=== PATIENT | female | born 1955 | race Caucasian/White ===

== ENCOUNTER 2019-02-15 07:00 | Day surgery (SDC) | payer MEDICARE ==
[~2019-02-15 07:00] MED LIST: ADAL40PEN INJ; ALBU4; ALBU90I INH; BUDE6HFA; Black Cohosh40 MG; CHOL10002 PO; CLOB.05TO TP; CODGUAEL; DIAZ2; ETOD200; FLUSAL5005 IH; FOLI1 PO; HYDACE10B PO; HYDCHL12.5; IBUP800 PO; METTREX2.5 PO; OMEP10ER; OMEP10ER PO; OSEL75CA; PRED1; TRAM50; TRAM50 PO
== END 2019-02-15 22:46 | disposition home or self-care (01) ==
LOC: MOI US 07:00 → MOI MAM 07:30 → MOI US 07:30
DX: C50.911 Malignant neoplasm of unspecified site of right female breast (principal); Z17.1 Estrogen receptor negative status [ER-]
CPT/HCPCS: 19083; 38505; 76942; 77065; 88305; 88360; A4648; G0279

== ENCOUNTER 2019-03-04 10:40 | Day surgery (SDC) | payer MEDICARE ==
[~2019-03-04] VITALS: Ht 154.9 cm; Wt 81.0 kg
--- NOTE | 2019-03-04 12:16 | NUR ---
03/04/19 1216 Pallavi Lee HEPARIN USED TO PRIME PORT.
--- NOTE | 2019-03-04 13:07 | NUR ---
03/04/19 1307 Shelley Ash PT IS ACCOMPANIED BY HER AT THIS TIME. PT IS IN THE BED AWAITING RESULTS FROM CHEST X-RAY. VSS. PT DENIES PAIN AND NAUSEA.
== END 2019-03-04 13:32 | disposition home or self-care (01) ==
LOC: ORSCSDS 10:40
PROVIDERS: Surgery
PROC: 05HN33Z Insertion of Infusion Device into Left Internal Jugular Vein, Percutaneous Approach (ICD-10-PCS; principal; 2019-03-04 12:00)
PROC: B5141ZA Fluoroscopy of Left Jugular Veins using Low Osmolar Contrast, Guidance (ICD-10-PCS; principal; 2019-03-04 12:00)
DX: C50.411 Malignant neoplasm of upper-outer quadrant of right female breast (principal); I10 Essential (primary) hypertension; J44.9 Chronic obstructive pulmonary disease, unspecified; G47.33 Obstructive sleep apnea (adult) (pediatric)
CPT/HCPCS: 77001; C1788; J0690; J1100; J1642; J2250; J2370; J2405; J2704; J7120

== ENCOUNTER 2019-03-12 10:01 | Day surgery (SDC) | payer MEDICARE | END 2019-03-12 23:42 | disposition home or self-care (01) | LOC: ORSCMMR 10:01 → RAD 10:01 → ORSCMMR 10:02 → RAD 11:00 | DX: Z45.2 Encounter for adjustment and management of vascular access device (principal); C50.411 Malignant neoplasm of upper-outer quadrant of right female breast | CPT/HCPCS: 36598; Q9967 ==

== ENCOUNTER 2019-03-22 07:02 | Day surgery (SDC) | payer MEDICARE | END 2019-03-23 00:06 | disposition home or self-care (01) | LOC: MOI US 07:02 | PROC: BH40ZZZ Ultrasonography of Right Breast (ICD-10-PCS; principal; 2019-03-23) | DX: C50.411 Malignant neoplasm of upper-outer quadrant of right female breast (principal) | CPT/HCPCS: 19285; 19286; 77065 ==

== ENCOUNTER 2019-09-09 05:45 | Day surgery (SDC) | payer MEDICARE ==
[~2019-09-09] VITALS: Ht 154.9 cm; Wt 87.6 kg
[~2019-09-09 05:45] MED LIST changes: +DIAZ5 PO; +LORA.5 PO
--- NOTE | 2019-09-09 07:04 | NUR ---
Ambulatory in Day Surgery. History, Chart, Medications and Allergies reviewed before start of procedure.Lungs clear T/O to Auscultation. Patient States Post-Procedure ride home has been arranged. Patient confirms NPO status and agrees with scheduled surgery.PT LYING COMFORTABLY IN GURNEY WITH WARMER ON AND AT BEDSIDE. VSS. WILL CONTINUE TO MONITOR.
--- NOTE | 2019-09-09 07:19 | NUR ---
CIRCULATING NURSE DOMINIC DAVIS RN AT [facility].
--- NOTE | 2019-09-09 11:46 | NUR ---
"DAY SURGERY RN | DISCHARGE VSS. A/O. DENIES ISSUES. STATES THEY WANT TO GO HOME. DISCHARGE INSTRUCTIONS GIVENT TO PATIENT. DEMONSTRATED SILVANA DRAIN CARE. SPECIMEN CUP GIVEN TO PATIENT. NO ISSUES. TAKEN IN WHEELCHAIR TO FRONT ENTRANCE BY THIS RN. IS RIDE HOME."
== END 2019-09-09 22:57 | disposition home or self-care (01) ==
LOC: ORSCMMR 05:45 → ORD 07:30 → ORSCMMR 07:30
PROVIDERS: Surgery
PROC: 07B50ZX Excision of Right Axillary Lymphatic, Open Approach, Diagnostic (ICD-10-PCS; principal; 2019-09-09 07:30)
PROC: 0HBT0ZZ Excision of Right Breast, Open Approach (ICD-10-PCS; principal; 2019-09-09 07:30)
DX: C50.411 Malignant neoplasm of upper-outer quadrant of right female breast (principal); C77.3 Secondary and unspecified malignant neoplasm of axilla and upper limb lymph nodes; Z87.891 Personal history of nicotine dependence; E66.01 Morbid (severe) obesity due to excess calories; Z68.36 Body mass index [BMI] 36.0-36.9, adult
CPT/HCPCS: 76098; 88305; 88307; 88331; 88332; A9270-GY; J0690; J1100; J1885; J2250; J2405; J2704; J3010; J7120

== ENCOUNTER → 2019-09-29 | Outpatient (CLI) | payer MEDICARE ==
[~2019-09-29] MED LIST changes: +CLIN300 PO; +OMEPRAZOLE20 MG PO
[2019-09-29 14:06] LABS: BASOPHILS ABSOLUTE AUTO 0.03 K/mm3 (0.00-0.23); BASOPHILS PERCENT AUTO 0 % (0-2); EOSINOPHILS ABSOLUTE AUTO 0.45 K/mm3 (0.00-0.68); EOSINOPHILS PERCENT AUTO 6 % (0-6); Hemoglobin 12.7 g/dL (11.5-16.0); IMMATURE GRAN ABSOLUTE AUTO 0.03 K/mm3 (0.00-0.10); IMMATURE GRAN PERCENT AUTO 0 % (0-1); LYMPHOCYTES ABSOLUTE AUTO 1.24 K/mm3 (0.84-5.20); LYMPHOCYTES PERCENT AUTO 17 % (21-46); MONOCYTES ABSOLUTE AUTO 0.91 K/mm3 (0.16-1.47); MONOCYTES PERCENT AUTO 12 % (4-13); Mean Corpuscular HGB 31.3 pg (26.0-34.0); Mean Corpuscular HGB Conc 33.4 g/dL (31.5-36.5); Mean Corpuscular Volume 94 fL (80-100); NEUTROPHILS ABSOLUTE AUTO 4.79 K/mm3 (1.96-9.15); NEUTROPHILS PERCENT AUTO 64 % (41-73); Platelet Count 263 K/mm3 (150-400); RDW Standard Deviation 44.8 fL (35.1-46.3); Red Blood Cell Count 4.06 M/mm3 (3.80-5.20); White Blood Cell Count 7.45 K/mm3 (4.00-11.30)
[2019-09-29 14:17] LABS: Alanine Aminotransfer (ALT/SGP 21 U/L (12-78); Albumin, Blood 3.2 g/dL (3.4-5.0); Albumin/Globulin Ratio 0.9 (0.8-1.8); Alk Phos 85 U/L (40-126); Anion Gap 12 mmol/L (6-16); Aspartate Aminotrans (AST/SGOT 19 U/L (12-37); Bilirubin, Total 0.6 mg/dL (0.1-1.0); Blood Urea Nitrogen 13 mg/dL (8-24); Bun/Creatinine Ratio 17.8 (12.0-20.0); CO2, Blood 25 mmol/L (21-32); Chloride, Blood 104 mmol/L (98-108); Creatinine, Blood 0.73 mg/dL (0.40-1.00); Globulin, Blood 3.6 g/dL (2.2-4.0); Glomerular Filtration Rate >60 (60-); Glucose, Blood 95 mg/dL (70-99); Potassium, Blood 3.9 mmol/L (3.5-5.5); Sodium, Blood 141 mmol/L (136-145); Total Protein, Blood 6.8 g/dL (6.4-8.2)
== END | disposition home or self-care (01) ==
LOC: LAB SHORT 13:51 → LAB EV 13:51
PROVIDERS: Physician Assistant
DX: L08.9 Local infection of the skin and subcutaneous tissue, unspecified (principal)
CPT/HCPCS: 80053; 85025; 87040; 87070; 87205

== ENCOUNTER 2019-10-02 12:48 | Day surgery (SDC) | payer MEDICARE ==
[~2019-10-02] VITALS: Ht 154.9 cm; Wt 84.0 kg
[~2019-10-02 12:48] MED LIST changes: -CLIN300 PO; -OMEPRAZOLE20 MG PO
[2019-10-02] MEDS ORDERED: OMEPRAZOLE20 MG PO (13:42)
[2019-10-02] MEDS ORDERED: CLIN300 PO (13:42)
--- NOTE | 2019-10-02 14:03 | NUR ---
Ambulatory in Day Surgery. Surgical site prepped with 2% Chlorhexidine cloth wipe. History, Chart, Medications and Allergies reviewed before start of procedure. Lungs clear T/O to Auscultation. Patient confirms NPO status and agrees with scheduled surgery. Pre-Op teaching done. Pt verbalizes understanding. Patient States Post-Procedure ride home has been arranged.
--- NOTE | 2019-10-02 16:08 | NUR ---
"DAY SURGERY RN | PATIENT FROM DAY SURG TO PACU FOR PRE-OP PRE-OP STAFF WENT HOME SO THIS RN AND BLAS GRANT RN TOOK CARE OF PATIENT IN PACU. BOTH DOCTORS AND TOY STUFFER HAVE SEEN PATIENT. TO OR."
--- NOTE | 2019-10-02 17:23 | NUR ---
"DAY SURGERY RN | DEACCESS OF MEDIPORT ORDERS OBTAINED FOR DEACCESS. FLUSHED WITH 20 ML NORMAL SALINE, THEN 500 UNIT HEPARIN LOCK DIRECTED BY PHYSICIAN. NEEDLE WAS DEACCESSED, NO BLEEDING. BANDAIDE IN PLACE."
--- NOTE | 2019-10-02 17:25 | NUR ---
"DAY SURGERY RN | DISCHARGE VSS. A/O. SITE C/D/I. NO PAIN AND NO NAUSEA. TOLERATING PO CRACKERS AND WATER. STATES READY TO GO. NO ISSUES. DISCHARGE INSTRUCTIONS GIVEN TO PATIENT WITH FAMILY PRESENT. TAKEN OUT IN WHEELCHAIR BY THIS RN. IS RIDE HOME."
--- NOTE | 2019-10-03 09:06 | NUR ---
10/03/19 0906 Regina Javier VERIFICATIONS: EDIT CHART.
== END 2019-10-02 22:35 | disposition home or self-care (01) ==
LOC: ORSCMMR 12:48
PROVIDERS: Surgery
PROC: 0H9T0ZZ Drainage of Right Breast, Open Approach (ICD-10-PCS; principal; 2019-10-02 15:00)
DX: L76.32 Postprocedural hematoma of skin and subcutaneous tissue following other procedure (principal); E66.9 Obesity, unspecified; Z68.35 Body mass index [BMI] 35.0-35.9, adult; Z79.899 Other long term (current) drug therapy
CPT/HCPCS: J1100; J1642; J1885; J2250; J2405; J2704; J3010; J7120

== ENCOUNTER → 2021-12-09 | Outpatient (CLI) | payer MEDICARE ==
[~2021-12-09] MED LIST changes: +ASPI81CH PO; +ATOR40TA PO; +CAPE500; +CLIN300 PO; +LOVASTATIN20 MG PO; +OMEPRAZOLE20 MG PO; +Ropinirole HCl0.5 MG PO
[2021-12-09 14:36] LABS: Adenovirus F 40/41 Not Detected (NOT DETECT); Astrovirus Not Detected (NOT DETECT); Campylobacter Sp Not Detected (NOT DETECT); Cryptosporidium Not Detected (NOT DETECT); Cyclospora Cayetanensis Not Detected (NOT DETECT); E. Coli O157 Not Detected (NOT DETECT); Entamoeba Histolytica Not Detected (NOT DETECT); Enteroaggregative E. coli-EAEC Not Detected (NOT DETECT); Enteropathogenic E. coli-EPEC Not Detected (NOT DETECT); Enterotoxigenic E. coli-ETEC Not Detected (NOT DETECT); Giardia Lamblia Not Detected (NOT DETECT); Norovirus GI/GII Not Detected (NOT DETECT); Plesiomonas Shigelloides Not Detected (NOT DETECT); Rotavirus A Not Detected (NOT DETECT); Salmonella Sp Not Detected (NOT DETECT); Sapovirus Not Detected (NOT DETECT); Shiga Toxin-prod E. coli-STEC Not Detected (NOT DETECT); Shigella/Enteroin E. coli-EIEC Not Detected (NOT DETECT); Vibrio Cholerae Not Detected (NOT DETECT); Vibrio Sp Not Detected (NOT DETECT); Yersinia Enterocolitica Not Detected (NOT DETECT)
== END | disposition home or self-care (01) ==
LOC: LAB SHORT 10:41
PROVIDERS: Physician Assistant
DX: R19.7 Diarrhea, unspecified (principal)
CPT/HCPCS: 0097U

== ENCOUNTER 2023-05-17 07:38 | Day surgery (SDC) | payer OTHER ==
[~2023-05-17] VITALS: Ht 156 cm; Wt 92.9 kg
[~2023-05-17 07:38] MED LIST changes: +LOSA25 PO; +ONDA4ODT MM; +PREG200 PO
[2023-05-17 08:13] VITALS: BP 139/94
--- NOTE | 2023-05-17 08:41 | NUR ---
PATIENT INTO MILIND SURG IN W/C LEFFT SIDE EFFECTED STROKE. USES CANE. BRACE TO LEFT LEG, LEFT ARM UNABLE TO USE, MILD CONTRACTURE. History, Chart, Medications and Allergies reviewed before start of procedure.Patient confirms NPO status and agrees with scheduled surgery. Patient reports completing Chlorhexadine shower X2 prior to admission to hospital.Surgical site prepped with 2% Chlorhexidine cloth wipe. Patient States Post-Procedure ride home has been arranged.
[2023-05-17 10:01] VITALS: BP 112/64
[2023-05-17 10:05] VITALS: BP 101/62
[2023-05-17 10:10] VITALS: BP 105/66
[2023-05-17 10:14] VITALS: BP 101/62
[2023-05-17 10:28] VITALS: BP 114/67
== END 2023-05-17 11:00 | disposition home or self-care (01) ==
LOC: ORSCMMR 07:38 → ORD 07:38 → ORSCMMR 07:40 → ORD 11:00
PROVIDERS: Surgery
PROC: 0JB80ZX Excision of Abdomen Subcutaneous Tissue and Fascia, Open Approach, Diagnostic (ICD-10-PCS; principal; 2023-05-17 09:00)
DX: D17.1 Benign lipomatous neoplasm of skin and subcutaneous tissue of trunk (principal); I10 Essential (primary) hypertension; J44.9 Chronic obstructive pulmonary disease, unspecified; Z87.891 Personal history of nicotine dependence; G47.33 Obstructive sleep apnea (adult) (pediatric); K21.9 Gastro-esophageal reflux disease without esophagitis; G62.9 Polyneuropathy, unspecified; E66.9 Obesity, unspecified; Z68.38 Body mass index [BMI] 38.0-38.9, adult; Z79.899 Other long term (current) drug therapy; Z85.3 Personal history of malignant neoplasm of breast
CPT/HCPCS: 88304; A9270; J0690; J1100; J2405; J2704; J3010; J7120

== ENCOUNTER 2023-10-10 13:05 | Day surgery (SDC) | payer OTHER ==
[~2023-10-10] VITALS: Ht 157.5 cm; Wt 92.9 kg
[2023-10-10 14:30] VITALS: BP 104/63
== END 2023-10-10 14:41 | disposition home or self-care (01) ==
LOC: ORSCSDS 13:05
PROVIDERS: Student in an Organized Health Care Education/Training Program
PROC: 08RJ3JZ Replacement of Right Lens with Synthetic Substitute, Percutaneous Approach (ICD-10-PCS; principal; 2023-10-10 14:30)
DX: H25.13 Age-related nuclear cataract, bilateral (principal); I10 Essential (primary) hypertension; K21.9 Gastro-esophageal reflux disease without esophagitis; J44.9 Chronic obstructive pulmonary disease, unspecified; G47.33 Obstructive sleep apnea (adult) (pediatric); Z86.73 Personal history of transient ischemic attack (TIA), and cerebral infarction without residual deficits; Z87.891 Personal history of nicotine dependence; Z79.82 Long term (current) use of aspirin; Z79.899 Other long term (current) drug therapy
CPT/HCPCS: J2250; J3010; J7040; V2632

== ENCOUNTER 2023-10-24 10:34 | Day surgery (SDC) | payer OTHER ==
[~2023-10-24] VITALS: Ht 154.9 cm; Wt 92.7 kg
[~2023-10-24 10:34] MED LIST changes: +ACET325 PO; -ASPI81CH PO; +ASPIR 8181 M1 PO; +Balanced Salt Epinephrine Irrigation Solution 500 mL IR SCH; +Lidocaine HCl/Pf 1% 5 ML VIAL XX SCH; +Lovastatin20 MG PO; +MIRALAX17 GM PO; +Moxifloxacin HCL 0.5 MG/0.1 ML 0.4MLSYR LEFTEYE SCH; +NS 500 ML IV ONE; +PHENYLEPHRINE\\TROPICAMIDE\\TETRACAINE OPHTHALMIC DILATING SOLN LEFTEYE PRN; +Povidone-Iodine 450 DROP/30 ML Solution LEFTEYE SCH; +Povidone-Iodine 450 DROP/30 ML Solution ONE; +ROPINIROLE HCL0.5 MG
[2023-10-24] MEDS ORDERED: Phenylephrine Frt 10% Opth (ORSC) ONE (10:52)
[2023-10-24] MEDS ORDERED: NS 1,000 ML IV ONE (11:32)
--- NOTE | 2023-10-24 11:37 | NUR ---
10/24/23 1137 Kirstin Savage:[id number] MEKA: [id number]
[2023-10-24] MEDS ORDERED: Midazolam HCl 1MG / ML 2ML Vial ONE (12:04)
[2023-10-24] MEDS ORDERED: Tetracaine HCl 0.5% Opth Soln 15 ml LEFTEYE ONE (12:05)
[2023-10-24 12:27] VITALS: BP 122/72
== END 2023-10-24 12:41 | disposition home or self-care (01) ==
LOC: ORSCSDS 10:34
PROVIDERS: Student in an Organized Health Care Education/Training Program
PROC: 08RK3JZ Replacement of Left Lens with Synthetic Substitute, Percutaneous Approach (ICD-10-PCS; principal; 2023-10-24 12:00)
DX: H25.12 Age-related nuclear cataract, left eye (principal); Z96.1 Presence of intraocular lens; K21.9 Gastro-esophageal reflux disease without esophagitis; J44.9 Chronic obstructive pulmonary disease, unspecified; I10 Essential (primary) hypertension; Z86.73 Personal history of transient ischemic attack (TIA), and cerebral infarction without residual deficits; G47.33 Obstructive sleep apnea (adult) (pediatric); Z79.82 Long term (current) use of aspirin; Z79.899 Other long term (current) drug therapy
CPT/HCPCS: J2250; J7040; V2632